=== PATIENT | male | born 1985 | race African-American/Black ===

== ENCOUNTER 2022-11-15 17:43 | Emergency (ER) | payer SELFPAY ==
[2022-11-15] MEDS ORDERED: Ketorolac Tromethamine 30 MG/ML VIAL ONE (18:37)
== END 2022-11-15 19:46 | disposition home or self-care (01) ==
LOC: CSHERS 17:43
DX: M79.10 Myalgia, unspecified site (principal)
CPT/HCPCS: 71045; 96372; J1885